=== PATIENT | male | born 1985 | race Caucasian/White ===

== ENCOUNTER 2019-08-01 06:25 | Day surgery (SDC) | payer BC ==
[~2019-08-01 06:25] MED LIST: Lactated Ringers 1,000 ML IV SCH; Lidocaine 1%/Sod Bicarbonate in NS 8.4% 1 ML Syringe IDERM PRN; Sodium Chloride 0.9% 10 ML Syringe FLUSH PRN
[2019-08-01] MEDS ORDERED: Bupivacaine 0.25% 10 ML SDV ONE (06:39)
--- NOTE | 2019-08-01 07:01 | PCM.PREANE ---
Preanesthetic Assessment - Anesthesia/Transfusion/Family Hx Anesthesia History: No Prior Anesthesia Family History of Anesthesia Reaction: No Transfusion History: No Prior Transfusion(s) - Review of Systems General: No Symptoms Pulmonary: No Symptoms Cardiovascular: No Symptoms Gastrointestinal: No Symptoms Neurological: No Symptoms Other: Reports: None - Physical Assessment NPO Status Date: 07/31/19 NPO Status Time: 19:00 Vital Signs: Last Vital Signs Temp 36.4 C 08/01/19 06:35 Pulse 86 08/01/19 06:35 Resp 16 08/01/19 06:35 BP 135/79 08/01/19 06:35 Pulse Ox 95 08/01/19 06:35 Height: 1.88 m Weight: 119.295 kg ASA Class: 2 Mental Status: Alert & Oriented x3 Dentition: Reports: Normal Dentition Thyro-Mental Finger Breadths: 3 Mouth Opening Finger Breadths: 3 ROM/Head Extension: Full Lungs: Clear to Auscultation, Normal Respiratory Effort Cardiovascular: Regular Rate, Regular Rhythm - Lab Values: Laboratory Last Values MRSA (PCR) Negative 07/25/19 13:29 - Allergies Allergies/Adverse Reactions: Allergies Allergy/AdvReac Type Severity Reaction Status Date / Time ibuprofen Allergy Rash Verified 07/31/19 15:28 - Blood Blood Available: No Product(s) Available: None - Anesthesia Plan Pre-Op Medication Ordered: None - Acknowledgements Anesthesia Type Planned: General Anesthesia Pt an Appropriate Candidate for the Planned Anesthesia: Yes Alternatives and Risks of Anesthesia Discussed w Pt/Guardian: Yes Pt/Guardian Understands and Agrees with Anesthesia Plan: Yes PreAnesthesia Questionnaire HEENT History: Reports: Epistaxis, Impaired Vision Cardiovascular History: Reports: Hypertension Respiratory History: Reports: None Gastrointestinal History: Reports: None, GERD Genitourinary History: Reports: None GLOBE CLEANER History: Reports: None Musculoskeletal History: Reports: Other (See Below) Other Musculoskeletal History: right knee injury, left shoulder surgery, right ACL repair Neurological History: Reports: None Psychiatric History: Reports: None Endocrine/Metabolic History: Reports: None Hematologic History: Reports: None Immunologic History: Reports: None Oncologic (Cancer) History: Reports: None Dermatologic History: Reports: None - Past Surgical History Head Surgeries/Procedures: Reports: None HEENT Surgical History: Reports: None Cardiovascular Surgical History: Reports: None Respiratory Surgical History: Reports: None GI Surgical History: Reports: None Female Surgical History: Reports: None Male Surgical History: Reports: None Endocrine Surgical History: Reports: None Neurological Surgical History: Reports: None Musculoskeletal Surgical History: Reports: None Oncologic Surgical History: Reports: None Dermatological Surgical History: Reports: None - SUBSTANCE USE Smoking Status *Q: Former Smoker Tobacco Use Within Last Twelve Months: No Second Hand Smoke Exposure: No Days Per Week of Alcohol Use: 0 Number of Drinks Per Day: 0 Total Drinks Per Week: 0 Recreational Drug Use History: No - HOME MEDS Home Medications: Home Meds Acetaminophen [Tylenol Extra Strength] 1,000 mg PO Q6H PRN 07/31/19 [History] Acetaminophen with Codeine [Tylenol with Codeine #3 Tablet] 1 - 2 tab PO Q4H PRN 07/31/19 [History] Cetirizine HCl [Zyrtec] 10 mg PO DAILY 07/31/19 [History] amLODIPine Besylate [Amlodipine Besylate] 5 mg PO DAILY 07/31/19 [History] hydroCHLOROthiazide [Hydrochlorothiazide] 12.5 mg PO DAILY 07/31/19 [History] lisinopriL [Lisinopril] 40 mg PO BEDTIME 07/31/19 [History] - CURRENT (IN HOUSE) MEDS Current Meds: Current Medications Epinephrine HCl (Adrenalin) 3 mg .XX ONETIME ASHLYN Lactated Ringer's (Ringers, Lactated) 1,000 mls @ 125 mls/hr IV ASDIRECTED ASHLYN Stop: 08/01/19 23:00 Lidocaine/Sodium Bicarbonate (Buffered Lidocaine 1% In Ns 8.4%) 0.25 ml IDERM ONETIME PRN PRN Reason: Prior to IV Start Stop: 08/01/19 18:00 Sodium Chloride (Saline Flush) 10 ml FLUSH ASDIRECTED PRN PRN Reason: Keep Vein Open Stop: 08/01/19 18:00 Discontinued Medications Bupivacaine HCl (Sensorcaine-Mpf 0.25%) Confirm Administered Dose 30 ml .ROUTE .STK-MED ONE Stop: 08/01/19 06:40
[2019-08-01] MEDS ORDERED: Ondansetron 4 MG/2 ML SDV ONE (07:06)
[2019-08-01] MEDS ORDERED: Propofol 200 MG/20 ML SDV ONE (07:06)
[2019-08-01] MEDS ORDERED: Midazolam 1 MG/ML 2 ML SDV ONE (07:06)
[2019-08-01] MEDS ORDERED: fentaNYL 250 MCG/5 ML SDV ONE (07:06)
[2019-08-01] MEDS ORDERED: Lidocaine 1% 4 ML ONE (07:06)
[2019-08-01] MEDS ORDERED: Ketorolac 30 MG/ML SDV ONE (07:06)
[2019-08-01] MEDS ORDERED: ceFAZolin 1 GM Vial ONE (07:30)
[2019-08-01] MEDS ORDERED: EPINEPHrine 1 MG/1 ML Amp SCH (07:30)
[2019-08-01] MEDS ORDERED: HYDROmorphone 0.5 MG/0.5 ML Syringe ONE ×2 (07:35→07:49)
[2019-08-01] MEDS ORDERED: Lactated Ringers 1,000 ML ONE (07:39)
[2019-08-01] MEDS ORDERED: fentaNYL 100 MCG/2 ML SDV IVPUSH PRN (08:31)
--- NOTE | 2019-08-01 08:32 | PCM.POSTAN ---
POST ANESTHESIA ASSESSMENT - MENTAL STATUS Mental Status: Alert, Oriented - VITAL SIGNS Vital Signs: Last Vital Signs Temp 36.4 C 08/01/19 06:35 Pulse 86 08/01/19 06:35 Resp 16 08/01/19 06:35 BP 135/79 08/01/19 06:35 Pulse Ox 95 08/01/19 06:35 - RESPIRATORY Respiratory Status: Respiratory Rate WNL, Airway Patent, O2 Saturation Stable, Supplemental Oxygen - CARDIOVASCULAR CV Status: Pulse Rate WNL, Blood Pressure Stable - GASTROINTESTINAL GI Status: No Symptoms - PAIN Pain Score: 0 - POST OP HYDRATION Hydration Status: Adequate & Stable - OBSERVATIONS Free Text/Narrative:: no anesthesia complications noted
[2019-08-01] MEDS ORDERED: Acetaminophen/HYDROcodone 325-5 MG Tab PO PRN (09:04)
--- NOTE | 2019-08-01 12:23 | PCM48HPAN ---
Post Anesthesia Note - EVALUATION WITHIN 48HRS OF ANESTHETIC Vital Signs in Normal Range: Yes Patient Participated in Evaluation: Yes Respiratory Function Stable: Yes Airway Patent: Yes Cardiovascular Function Stable: Yes Hydration Status Stable: Yes Pain Control Satisfactory: Yes Nausea and Vomiting Control Satisfactory: Yes Mental Status Recovered: Yes Vital Signs: Last Vital Signs Temp 36.6 C 08/01/19 11:00 Pulse 86 08/01/19 11:00 Resp 17 08/01/19 11:00 BP 115/79 08/01/19 11:00 Pulse Ox 95 08/01/19 11:00 - COMMENTS/OBSERVATIONS Free Text/Narrative:: no anesthesia complications noted
--- NOTE | 2019-08-02 17:13 | PCM.OPNOTE ---
- General Post-Op/Procedure Note Date of Surgery/Procedure: 08/01/19 Operative Procedure(s): right knee video arthroscopy with partial medial and lateral meniscecomty and partial synovectomy Pre Op Diagnosis: right knee medial and lateral meniscus tears with lateral tibial plateau fracture Post-Op Diagnosis: Same Anesthesia Technique: General LMA, Local Primary Surgeon: Earl Pang Anesthesia Provider: Robbin Gillis Dry Ice Maker: Luma Gao EBL in mLs: 5 Complications: None Condition: Good
--- NOTE | 2019-08-02 17:47 | OR ---
DATE OF OPERATION: 08/01/2019 SURGEON: Earl Pang MD OPERATION PERFORMED: Right knee video arthroscopy with partial medial and lateral meniscectomy and partial synovectomy. PREOPERATIVE DIAGNOSIS: Right knee medial and lateral meniscus tears with lateral tibial plateau fracture. POSTOPERATIVE DIAGNOSIS: Right knee medial and lateral meniscus tears with lateral tibial plateau fracture. ANESTHESIA: General LMA with local. ANESTHESIA PROVIDER: Robbin Gillis CRNA. HOUSING MANAGEMENT REPRESENTATIVE: Luma Gao LPN. ESTIMATED BLOOD LOSS: 5 mL. COMPLICATIONS: None. CONDITION: Stable. DESCRIPTION OF PROCEDURE: The patient was identified in the preop holding area. Proper site was marked, identified by the surgeon. The patient was taken back to the operative theater, where after adequate anesthesia, the patient's left lower extremity was placed in a well leg dixon. Right lower extremity had a nonsterile tourniquet applied and was then placed in a C-clamp dixon. Foot of the bed was then lowered. Right lower extremity was then sterilely prepped and draped in usual sterile fashion. OR time-out was performed. The patient received 2 g of IV Ancef. Right lower extremity was exsanguinated. Tourniquet was insufflated to 250 mmHg. Standard anterior lateral portal incision was made. Scope trocar was introduced. The patient was noted to have a significant bloody effusion. The patient was also noted to have hematoma inside the knee as well as significant synovitis. There were no loose or foreign bodies in the medial or lateral gutters. The patient's knee was stable to varus and valgus stresses. On examination of the medial compartment, the patient had a slight fraying and tearing in the anterior portion of the medial meniscus. This was then resected back after an anterior medial portal was corrected with the use of a resector back to a stable rim. Less than 5% of the meniscus was torn. ACL graft was intact, but it does look like it has been stretched. Lateral tibial plateau did show a 1 mm step-off at the articular surface of the fragment fractures, but there is otherwise no gross instability noted and it is less than 2 mm step-off. At this time, there was noted to be a slight tearing in the anterior and midportion of the lateral meniscus. Again, only roughly 5% to 10% of the meniscus, and I performed a partial lateral meniscectomy. I performed a synovectomy also at this time back to a stable rim of synovium secondary to the patient's significantly overgrown synovitis. At this time, excess saline was drained from the knee. 3-0 nylon sutures were used for closure of skin. The patient had 0.25% Marcaine injected around the incisional sites and a sterile soft dressing was applied. The patient was sent to PACU in stable condition. DENYS /[id number]
== END 2019-08-01 13:11 | disposition home or self-care (01) ==
LOC: JD.SDS 06:25
PROVIDERS: ATTEND Orthopaedic Surgery
DX: S83.241A Other tear of medial meniscus, current injury, right knee, initial encounter (principal); S83.281A Other tear of lateral meniscus, current injury, right knee, initial encounter; S82.141A Displaced bicondylar fracture of right tibia, initial encounter for closed fracture; M65.861 Other synovitis and tenosynovitis, right lower leg; I10 Essential (primary) hypertension; K21.9 Gastro-esophageal reflux disease without esophagitis; Z87.891 Personal history of nicotine dependence; Z88.6 Allergy status to analgesic agent; Z98.890 Other specified postprocedural states; Z79.899 Other long term (current) drug therapy
CPT/HCPCS: 29880; 87641; A9270; J0171; J0690; J1170; J2001; J2250; J2405; J2704; J3010; J3490; J7120; 01400; J1885